=== PATIENT | female | born 1980 | race Asian ===

== ENCOUNTER 2018-04-29 05:23 | Inpatient (IN) | payer BC ==
[2018-04-29 05:52] VITALS: BMI 23.0
[2018-04-29] MEDS ORDERED: Lidocaine 1% (PF) 30 ML VIAL SC PRN (06:45)
[2018-04-29] MEDS ORDERED: Lactated Ringer's 1,000 ML IV SCH (06:45)
[2018-04-29] MEDS ORDERED: Ibuprofen 800 MG TAB PO PRN (06:45)
[2018-04-29] MEDS ORDERED: Promethazine HCl 25 MG/ML VIAL IM PRN (06:45)
[2018-04-29] MEDS ORDERED: Ondansetron HCl/PF 4 MG/2 ML Vial IVP PRN (06:45)
[2018-04-29] MEDS ORDERED: DISCONTINUE ALL PREVIOUS NARCOTICS FS SCH (07:00)
[2018-04-29] MEDS ORDERED: Bupivacaine 0.75% 13.4 ML, fentaNYL Citrate/PF 400 MCG in Sodium Chloride 0.9% 78.6 ML EPIDURAL SCH (07:00)
[2018-04-29 07:12] LABS: Hemoglobin 13.6 g/dL (12.0-16.0); Mean Corpuscular HGB CONC 34.5 g/dL (32.0-36.0); Mean Corpuscular Hemoglobin 31.1 pg (27.0-31.0); Mean Corpuscular Volume 90.2 fL (78.0-98.0); Mean Platelet Volume 6.5 fL (7.4-10.4); Platelet Count 388 thou/uL (130-400); RBC Distribution Width 11.8 % (11.5-14.5); Red Blood Cell (RBC) Count 4.36 mill/uL (4.20-5.40); White Blood Cell (WBC) Count 13.4 thou/uL (4.8-10.8)
[2018-04-29 07:43] LABS: HBSAg Index 0.15 S/CO (0-0.99); Hep B Surf Ag Non-Reactive S/CO (NonReactive)
[2018-04-29] MEDS: NS / Oxytocin 40 units/1000ml 1,000 ML IV PRN ×2 (08:00→09:11)
--- NOTE | 2018-04-29 08:32 | PDOC.OPDEL ---
OB Operative/Delivery Note Delivery Dr/Surgeon: Chela/Otis Assist: Jacklyn Pre-Delivery Diagnosis: active labor Procedure/Post Delivery Dx: spontaneous vaginal delivery Weeks gestation: 37 (.6) Anesthesia: none - Additional Findings/Plan Placenta delivered: spontaneous Repaired Obstetrical Laceration: none Estimated blood loss: 200 mL Compilations/Other Findings: Delivery Note: This is 38 yo F 0 0 1 @ 37.6wks who delivered a viable M at 0758. Following an uneventful antepartum course, a vigorous M was delivered over an intact perineum in the NOBLE position. Anterior Shoulder and then remainder of the body delivered. No nuchal cord. The head was held down and mouth and nares were bulb suctioned. Cord clamped after delayed cord clamping and cut and cord blood collected. Placenta delivered intact in the [place] with a 3 vessel cord noted. Fundal massage was performed and the fundus was firm. The cervix was inspected and found to be free of lacerations. There was a hemostatic 1st degree perineal laceration. Infant went to nursery in good condition for routine care. Apgars were 9/9 at 1 & 5 minutes, respectively. Patient tolerated delivery well and went to after routine recovery/care. Post delivery plan: routine recovery <Saul York K - Last Filed: 04/29/18 08:30> - Findings A Sex: male - 1 min: 9 - 5 min: 9 <Kimberly Villasenor - Last Filed: 04/29/18 18:26> Attending Addendum - Attending Addendum Date/Time: 04/29/181821 I was present and supervised Dr. Amezcua for the of a viable male infant to this 38 yo @ 37.6 weeks. Apgars 9/9. Placenta delivered spontaneously and intact. 3V cord. Small hemostatic perinela laceration- no sutures required. EBL 250 mL. Infant and mother in stable condition. <Kimberly Villasenor - Last Filed: 04/29/18 18:26>
[2018-04-29] MEDS ORDERED: Ketorolac Tromethamine 30 MG/ML VIAL IVP SCH (08:45)
[2018-04-29] MEDS ORDERED: Milk Of Magnesia 30 ML UDCUP PO PRN (10:32)
[2018-04-29] MEDS ORDERED: Bisacodyl 10 MG SUPP PR PRN (10:32)
[2018-04-29] MEDS ORDERED: Lanolin Ointment 7 GM TUBE TOP PRN (10:32)
[2018-04-29] MEDS ORDERED: Methylergonovine 0.2 MG/ML VIAL IM PRN (10:32)
[2018-04-29] MEDS ORDERED: NS / Oxytocin 40 units/1000ml 1,000 ML IV SCH (10:32)
[2018-04-29] MEDS ORDERED: Adacel (T-DAP) 0.5 ML VIAL IM ONE (10:32)
[2018-04-29] MEDS ORDERED: diphenhydrAMINE 25 MG CAP PO PRN (10:32)
[2018-04-29] MEDS ORDERED: Docusate Calcium (SURFAK) 240 MG CAP PO SCH (11:00)
[2018-04-29] MEDS ORDERED: Prenatal Vitamin 1 TAB PO SCH (11:00)
[2018-04-29] MEDS: Ibuprofen 800 MG TAB PO SCH ×2 (13:58→21:34)
[2018-04-29] MEDS: Ferrous Sulfate 325 MG TAB PO SCH (16:12)
[2018-04-29] MEDS: Docusate Calcium (SURFAK) 240 MG CAP PO SCH (21:34)
[2018-04-30] MEDS: Ibuprofen 800 MG TAB PO SCH ×2 (06:29→14:14)
[2018-04-30 08:05] VITALS: BP 99/59; TEMP 98.8
--- NOTE | 2018-04-30 08:10 | PDOC.PP ---
Post Progress Note Post Day #: 1 Subjective: Pain controlled, tolerating PO, minimal lochia. Ambulating without assistance and voiding without issue. +BF passing flatus. Reports breast feeding has been going well. PO intake tolerated: yes Flatus: yes Ambulation: yes Vital Signs (12 hours) Temp Pulse Resp BP BP 04/30/18 08:04 98.8 F 59 L 16 99/59 L 04/30/18 04:25 97.9 F 67 14 98/55 L 04/30/18 00:10 98.1 F 69 18 96/52 L 04/29/18 20:45 98.1 F 69 18 102/62 Weight Weight 58.967 kg - Physical Examination General: NAD Cardiovascular: no m/r/g, RRR Respiratory: clear to auscultation bilaterally Abdominal: + bowel sounds, lochia (Minimal), appropriately TTP Deviation from normal: Uterus firm just below at the umbilicus Neurological: no gross focal deficits Psychiatric: A&Ox3, normal affect Result Diagrams: 04/29/18 06:40 Additional Labs: Post Labs Blood Type O POSITIVE 04/29/18 06:40 Hep Bs Antigen Non-Reactive S/CO (NonReactive) 04/29/18 06:40 (1) care and examination Code(s): Z39.2 - ENCOUNTER FOR ROUTINE FOLLOW-UP Status: Acute Comment: G2 now P2 post- day 1 s/p at 37.6 wks to a TAGA M , GBS (-), w/ 1st degree perineal laceration not requiring repair -Pain controlled on PO medication -Minimal lochia less than a period -Tolerating PO and ambulating w/ + Bowel function -BP slightly low for her this morning, but this has been normal for her during her clinic visits with me -Will plan for likely discharge home with this afternoon pending normal bilirubin for baby 2/2 patient w/o routine outpatient f/u <Saul York - Last Filed: 04/30/18 08:08> Vital Signs (12 hours) Temp Pulse Resp BP BP 04/30/18 08:04 98.8 F 59 L 16 99/59 L 04/30/18 08:00 98.8 F 59 L 16 04/30/18 04:25 97.9 F 67 14 98/55 L Weight Weight 58.967 kg Result Diagrams: 04/29/18 06:40 Additional Labs: Post Labs Blood Type O POSITIVE 04/29/18 06:40 Hep Bs Antigen Non-Reactive S/CO (NonReactive) 04/29/18 06:40 <Kimberly Villasenor - Last Filed: 04/30/18 12:12> Attending Addendum - Attending Addendum Date/Time: 04/30/18 1210 I personally evaluated the patient and discussed the management with Dr. York I agree with the History, Examination, Assessment and Plan documented above with any addition or exceptions noted below- Patient without complaints. Ambulating, voiding without difficulty. Afebrile VSS. PPD #1 s/p - continue routine care. Plan to d/c home later today. <Kimberly Villasenor - Last Filed: 04/30/18 12:12>
[2018-04-30] MEDS ORDERED: Prenatal Vitamin 1 TAB PO SCH (09:00)
[2018-04-30] MEDS: Docusate Calcium (SURFAK) 240 MG CAP PO SCH (09:09)
[2018-04-30] MEDS: Ferrous Sulfate 325 MG TAB PO SCH (09:09)
== END 2018-04-30 14:15 | disposition home or self-care (01) | DRG 775 ==
LOC: L&D/OP 05:23 → L&D 07:42 → 3SW 10:15
PROVIDERS: ADMIT Student in an Organized Health Care Education/Training Program; ATTEND Student in an Organized Health Care Education/Training Program
PROC: 10E0XZZ Delivery of Products of Conception, External Approach (ICD-10-PCS; principal; 2018-04-29)
DX: O70.0 First degree perineal laceration during delivery (principal); Z3A.37 37 weeks gestation of pregnancy; Z37.0 Single live birth
CPT/HCPCS: 85027; 86850; 86900; 86901; 87340; 99285; J1885; J2001; J3010; J7050